=== PATIENT | male | born 1990 | race Caucasian/White ===

== ENCOUNTER 2018-06-19 07:17 | Emergency (ER) | payer SELFPAY ==
[2018-06-19 07:21] VITALS: BP 170/76; PULSE 51; RESP 20; TEMP 36.7; O2SAT 99
[2018-06-19 07:25] VITALS: RESP 17
--- NOTE | 2018-06-19 07:34 | W.ED.GENAD ---
Discharge Plan Disposition Patient Disposition: HOME Condition: Stable Discharge Details Chief Complaint: Dizzy/Sync Clinical Impression: Dizziness Primary Care Provider: NONE,NONE ED Provider: Franca Ace Home Meds and New Rx's Prescriptions: New meclizine 25 mg tablet 25 mg PO BID PRN (Reason: dizziness) Qty: 8 RF: 0 Discharge Instructions Instructions: Dehydration (ED), Benign Paroxysmal Positional Vertigo (ED), Dizziness (ED) Additional Instructions: Please return immediately to the emergency department if you develop any new or worsening symptoms or if you become otherwise concerned. It is extremely important that you make an appointment to be seen by your primary care doctor in follow-up for this visit within the next 1-2 weeks. Stand Alone Forms: Work Release Discharge Data Discharge Date/Time-TO BE ENTERED AT DEPARTURE: 06/19/18 08:35 Medical Decision Making Emmett Moncada is a 28-year-old man without reported history of major medical problems presenting to the emergency department complaining of feeling of lightheadedness/dizziness with standing or turning his head quickly, also a mild intermittent feeling of being off balance. Patient is very well and nontoxic-appearing on exam, and during exam denies any symptoms. Left canal with cerumen occlusion. Right TM normal. Benign cardiopulmonary exam, benign neuro exam. Suspect dehydration from heavy alcohol use without sufficient fluid repletion versus benign positional vertigo versus labyrinthitis versus other. Exam/history not consistent with CVA, mass, carotid/vertebral pathology, other acute emergent intracranial etiology, cardiac etiology. Plan for IV fluid hydration, meclizine, left ear irrigation. Patient reports that he has significant fear of needles, and wwould prefer to forego IV fluids at this time, he reports that he is able to drink without issue and will begin oral repletion. Nursing irrigated left ear. Left TM now visible, there is a moderate serous effusion, TM otherwise normal. No acute otitis media. This may be etiology of symptoms versus dehydration as above. Patient feels well and requests discharge home. Lengthy discussion with patient regarding return to emergency department precautions and importance of outpatient follow-up with PCP, patient placed on CM list for establishing a primary care doctor. Rx meclizine. Patient is amenable to the plan. HPI General Mode of arrival: ambulatory. Date/Time Provider Initiated Documentation: 06/19/18 07:34. Limitations to Documentation: no limitations. Information obtained by: patient, RN notes reviewed and old records reviewed. HPI Narrative: Emmett Moncada is a 28 y/o man without reported history of major medical problems presenting to the emergency department with dizziness. Patient reports that 2 nights ago he was at a [employer] and drank heavily. He woke up in the morning and had the sensation of dizziness with standing quickly or turning his head. He states that dizziness does not feel like spinning or motion, feels more like lightheadedness, although he has felt mild symptoms along with feeling of being slightly off balance while walking since onset. Reports symptoms are mild, has not fallen. He reports that symptoms have persisted into today, but have become more mild. He reports he is currently experiencing no symptoms at all. Patient reports that he only drank a small bottle of water yesterday. He reports that when he is sitting or lying still he has no symptoms. Patient reports that he has been eating food since onset of symptoms without issue. He denies any pain, nausea/vomiting/diarrhea, shortness of breath, cough, rash, nasal congestion, fever. Feels otherwise in his usual state of health. Never had similar symptoms in the past. He denies recent travel, recent illness. 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 Reports that he drinks socially and occasionally without heavy regular alcohol use. Daily marijuana use, no other drug use. Related Data Home Medications Medication Instructions Recorded Confirmed meclizine 25 mg PO BID PRN #8 tab 06/19/18 Previous Rx's Medication Instructions Recorded meclizine 25 mg PO BID PRN #8 tab 06/19/18 Allergies Allergy/AdvReac Type Severity Reaction Status Date / Time No Known Allergies Allergy Unverified 06/19/18 07:25 General Stated Complaint: Dizzy/Sync WILLARD: 3 Review of Systems Review of Systems Constitutional: denies fevers Eyes: denies eye pain ENT: denies facial pain, dental pain, sore throat Cardiovascular: denies chest pain, edema, reports lightheadedness Respiratory: denies SOB, cough GI: denies abdominal pain, vomiting, diarrhea : denies flank pain MSK: denies back pain, neck pain, arthralgias, myalgias Skin: denies rash Neuro: denies headaches, weakness PFSH Social History Smoking/Tobacco Use Status: Current every day Exam Narrative Exam Narrative: Constitutional: well and [id number], pleasant, conversing normally HENT: head atraumatic, normocephalic normal inspection, mucous membranes moist, left canal occluded 2/2 cerumen, right canal and TM normal Eyes: conjunctiva normal, sclera normal, pupils 3mm b/l Neck: no stridor, normal ROM, trachea midline Chest: normal inspection Resp: normal work of breathing, LCTAB Cardio: normal rate, normal rhythm, no murmur appreciated GI: abdomen soft, non-tender, non-distended Back: normal inspection, no rash Skin: warm, dry, normal color, no rash Neuro: alert, not altered, 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 2-12 intact, normal tone, motor 5/5 throughout, normal finger-nose and heel-larsen, normal romberg, normal gait Ext: no edema Psych: normal mood, normal affect, normal behavior Course Vital Signs Temperature 36.7 C 06/19/18 07:21 Pulse 51 L 06/19/18 07:21 Respiratory Rate 20 06/19/18 07:21 Blood Pressure 170/76 H 06/19/18 07:21 Pulse Oximetry 99 06/19/18 07:21 Temperature 36.7 C 06/19/18 07:21 Temperature Source Temporal Artery Scan 06/19/18 07:21 Pulse 51 L 06/19/18 07:21 Respiratory Rate 17 06/19/18 07:25 Respiratory Effort Non-Labored 06/19/18 07:25 Respiratory Depth Normal 06/19/18 07:25 Respiratory Pattern Normal 06/19/18 07:25 Blood Pressure 170/76 H 06/19/18 07:21 Blood Pressure Position Sitting 06/19/18 07:21 Pulse Oximetry 99 06/19/18 07:21 Oxygen Delivery Method Room Air 06/19/18 07:21 Oxygen Flow Rate 0 06/19/18 07:21 Pain Level 0 06/19/18 07:21 Comment 06/19/18 07:21
[2018-06-19] MEDS: Meclizine 25 MG TAB PO (08:03)
--- NOTE | 2018-06-20 12:16 | CMPROGNOTE_ITS ---
Care Management Progress Note 06/20-Dr. Queenie Ace requested assistance with establishing a PCP. No ED f/u needed. Dr. West senior front end engineer. Referral faxed to [facility].
--- NOTE | 2018-06-20 12:16 | PDOC.ERCMPRO ---
Care Management Progress Note 06/20-Dr. Queenie Ace requested assistance with establishing a PCP. No ED f/u needed. Dr. West engineering operations leader. Referral faxed to [facility].
== END 2018-06-19 08:35 | disposition home or self-care (01) ==
LOC: ER 08:44
PROVIDERS: Emergency Provider Student in an Organized Health Care Education/Training Program
DX: R42 Dizziness and giddiness (principal); H61.22 Impacted cerumen, left ear
CPT/HCPCS: 69209; 99283